=== PATIENT | male | born 1990 | race American Indian/Alaskan Native ===

== ENCOUNTER 2021-01-02 22:39 | Emergency (ER) | payer OTHER ==
[2021-01-02 23:04] VITALS: BP 163/88
--- NOTE | 2021-01-02 23:08 | Emergency Department Report ---
ED ENT HPI - General Stated complaint: TOOTH PAIN Time Seen by Provider: 01/02/21 23:00 - Related Data Previous Rx's Medication Instructions Recorded Last Taken Type Acetaminophen/Codeine [Tylenol #3] 1 tab PO Q6H PRN #15 tab 01/02/21 Unknown Rx Amoxicillin [Amoxicillin TAB] 875 mg PO BID #20 tablet 01/02/21 Unknown Rx Chlorhexidine Mouthwash [Peridex] 15 ml MM BID #1 bottle 01/02/21 Unknown Rx Ketorolac [Toradol] 10 mg PO Q6H PRN #15 tablet 01/02/21 Unknown Rx Lidocaine Viscous 2% 5 ml MM Q3H PRN #120 udc 01/02/21 Unknown Rx ED Dental HPI - General Stated complaint: TOOTH PAIN Time Seen by Provider: 01/02/21 23:00 - Related Data Previous Rx's Medication Instructions Recorded Last Taken Type Acetaminophen/Codeine [Tylenol #3] 1 tab PO Q6H PRN #15 tab 01/02/21 Unknown Rx Amoxicillin [Amoxicillin TAB] 875 mg PO BID #20 tablet 01/02/21 Unknown Rx Chlorhexidine Mouthwash [Peridex] 15 ml MM BID #1 bottle 01/02/21 Unknown Rx Ketorolac [Toradol] 10 mg PO Q6H PRN #15 tablet 01/02/21 Unknown Rx Lidocaine Viscous 2% 5 ml MM Q3H PRN #120 udc 01/02/21 Unknown Rx ED Review of Systems ROS: Stated complaint: TOOTH PAIN Other details as noted in HPI ED Past Medical Hx - Medications Home Medications: Home Medications Medication Instructions Recorded Confirmed Last Taken Type Acetaminophen/Codeine [Tylenol #3] 1 tab PO Q6H PRN #15 tab 01/02/21 Unknown Rx Amoxicillin [Amoxicillin TAB] 875 mg PO BID #20 tablet 01/02/21 Unknown Rx Chlorhexidine Mouthwash [Peridex] 15 ml MM BID #1 bottle 01/02/21 Unknown Rx Ketorolac [Toradol] 10 mg PO Q6H PRN #15 tablet 01/02/21 Unknown Rx Lidocaine Viscous 2% 5 ml MM Q3H PRN #120 udc 01/02/21 Unknown Rx Critical care attestation.: If time is entered above; I have spent that time in minutes in the direct care of this critically ill patient, excluding procedure time. ED Disposition Clinical Impression: Dentalgia Disposition: HOME / SELF CARE / HOMELESS Is pt being admited?: No Does the pt Need Aspirin: No Condition: Stable Prescriptions: Amoxicillin [Amoxicillin TAB] 875 mg PO BID #20 tablet Lidocaine Viscous 2% 5 ml MM Q3H PRN #120 udc PRN Reason: Pain, Moderate (4-6) Chlorhexidine Mouthwash [Peridex] 15 ml MM BID #1 bottle Ketorolac [Toradol] 10 mg PO Q6H PRN #15 tablet PRN Reason: Pain Acetaminophen/Codeine [Tylenol #3] 1 tab PO Q6H PRN #15 tab PRN Reason: Pain Referrals: [facility] [Outside] - 3-5 Days
== END 2021-01-02 23:16 | disposition home or self-care (01) ==
LOC: ED 22:39
DX: K08.89 Other specified disorders of teeth and supporting structures (principal)
CPT/HCPCS: 99282